=== PATIENT | female | born 1995 | race Caucasian/White ===

== ENCOUNTER 2023-07-31 03:16 | Emergency (ER) | payer MEDICAID ==
[~2023-07-31] VITALS: Ht 160 cm; Wt 125.0 kg
[2023-07-31] MEDS ORDERED: ondansetron/PF 4mg/2ml inj IV ONE (04:00)
[2023-07-31] MEDS ORDERED: fentaNYL/PF 50MCG/1 ML 2ML syringe IV ONE ×2 (04:00→04:35)
[2023-07-31] MEDS ORDERED: LORazepam 2 mg/ml vial IV ONE ×2 (04:00→04:35)
[2023-07-31] MEDS ORDERED: normal saline 1000ML IV soln IVB ONE (04:00)
[2023-07-31 04:21] LABS: BASOPHILS # (AUTO) 0.1 X10'3 (0-0.2); BASOPHILS % (AUTO) 1.2 % (0-1); EOSINOPHILS # (AUTO) 0.3 X10'3 (0-0.9); EOSINOPHILS % (AUTO) 3.1 % (0-6); HEMATOCRIT 37.1 % (35.0-45.0); HEMOGLOBIN 12.5 g/dl (12.0-16.0); LYMPHOCYTES # (AUTO) 3.8 X10'3 (1.1-4.8); LYMPHOCYTES % (AUTO) 35.9 % (21-51); MEAN CORPUSCULAR HEMOGLOBIN 27.1 PG (27.0-31.0); MEAN CORPUSCULAR HGB CONC 33.5 g/dL (33.0-36.5); MEAN CORPUSCULAR VOLUME 80.7 FL (78-98); MEAN PLATELET VOLUME 8.6 FL (7.4-10.4); MONOCYTES # (AUTO) 0.6 X10'3 (0-0.9); MONOCYTES % (AUTO) 5.6 % (2-12); NEUTROPHILS # (AUTO) 5.6 X10'3 (1.8-7.7); NEUTROPHILS % (AUTO) 54.2 % (42-75); PLATELET COUNT 272 X10'3 (140-440); RED CELL DISTRIBUTION WIDTH 16.2 % (11.5-14.5); WHITE BLOOD COUNT 10.4 X10'3 (4.5-11.0)
[2023-07-31 04:26] LABS: HCG SERUM QL NEGATIVE
[2023-07-31 04:31] LABS: ALBUMIN 3.3 G/DL (3.4-5.0); ANION GAP 13 (8-16); BLOOD UREA NITROGEN 11 MG/DL (7-18); BUN/CREATININE RATIO 18.3 (10.0-20.0); CALCIUM 8.4 MG/DL (8.5-10.1); CHLORIDE 106 MMOL/L (99-107); ETHANOL 104 MG/DL (<10); GLUCOSE 93 MG/DL (70-104); LIPASE 21 U/L (16-77); POTASSIUM 3.9 MMOL/L (3.5-5.1); SODIUM 140 MMOL/L (135-145); TOTAL CARBON DIOXIDE 21.3 MMOL/L (24-32); eCRCL 117 ML/MIN; eGFR > 90 ML/MIN
[2023-07-31 04:39] LABS: BILIRUBIN,URINE NEGATIVE (Neg); CLARITY,URINE CLEAR (Clear); COLOR,URINE YELLOW (Yellow); GLUCOSE, URINE NEGATIVE (Neg); KETONES,URINE NEGATIVE (Neg); LEUKOCYTE ESTERASE ,URINE NEGATIVE (Neg); NITRITES, URINE NEGATIVE (Neg); OCCULT BLOOD,URINE NEGATIVE (Neg); PROTEIN,URINE NEGATIVE (Neg); UROBILINOGEN,URINE 0.2 E.U/dL (0.2-1.0)
[2023-07-31] MEDS ORDERED: iohexol 300mg/ml 100ml inj. ONE (04:39)
[2023-07-31 04:45] LABS: UA COLLECTION TYPE CLN CATCH MIDSTREAM
[2023-07-31 04:46] LABS: URINE AMPHETAMINE SCREEN NEGATIVE (Neg); URINE BARBITUATE SCREEN NEGATIVE (Neg); URINE BENZODIAZEPINES SCREEN NEGATIVE (Neg); URINE CANNABINOID SCREEN NEGATIVE (Neg); URINE COCAINE SCREEN NEGATIVE (Neg); URINE METHADONE SCREEN NEGATIVE (Neg); URINE OPIATE SCREEN POSITIVE (Neg); URINE PHENCYCLIDINE SCREEN NEGATIVE (Neg)
[2023-07-31] MEDS ORDERED: ketorolac trometh. 30mg/ml inj. IV ONE (06:05)
[2023-07-31] MEDS ORDERED: diphenhydrAMINE 50 mg/ml inj IV ONE (06:05)
[2023-07-31] MEDS ORDERED: morphine 4 MG/ML inj SYRINge IV ONE (06:05)
[2023-07-31 07:22] VITALS: BP 90/55; PULSE 87; RESP 14; TEMP 97.6; O2SAT 98
== END 2023-07-31 07:22 | disposition home or self-care (01) ==
LOC: ER 03:16
DX: N94.10 Unspecified dyspareunia (principal); R10.9 Unspecified abdominal pain; Z88.6 Allergy status to analgesic agent; Z91.09 Other allergy status, other than to drugs and biological substances; Z88.1 Allergy status to other antibiotic agents; Z88.5 Allergy status to narcotic agent
CPT/HCPCS: 36415; 74177; 76830; 76856; 80048; 80305; 80320; 81003; 83690; 84145; 84703; 85025; 87210; 93976; 96361; 96374; 96375; 99285; J1200; J1885; J2060; J2405; J3010; J3490; J7030; Q9967